=== PATIENT | female | born 1950 | race Caucasian/White ===

== ENCOUNTER → 2018-10-25 09:30 | Outpatient (CLI) | payer OTHER, SELFPAY ==
--- NOTE | 2018-10-25 09:32 | DI.MRI.S_ITS ---
PROCEDURE: MR PELIS WO/W CON INDICATIONS: growing soft tissue mass near r buttock cleft r/o sarcoma TECHNIQUE: Coronal HASTE, sagittal T2 FSE, axial T1 FSE, axial and coronal nonbreath-hold T2 FSE. Axial dynamic VIBE during administration of contrast. Post-contrast axial and coronal VIBE/2-D FLASH with fat saturation from the iliac crests to the symphysis. Optional diffusion weighted imaging and ADC may be performed. COMPARISON: Formerly [facility], MR, PELVIS W&WO CONTRAST, 04/07/2017, 10:15. Former[facility], MR, PELVIS W&WO CONTRAST, 12/15/2017, 9:24. FINDINGS: Image quality: Excellent. Bowel and peritoneum: No pathologic free pelvic fluid. Inferior colon and small bowel loops are normal in caliber. The rectal junction in the location of previous tumor was not fully imaged on the present study, however large [id number] imaging is negative for suspicious lesion in the visible bowel loops. Genitourinary system: Bladder wall is normal in thickness. Distal ureters are non distended. Uterus is surgically absent. Nodes and vessels: No pathologic pelvic or inguinal adenopathy by size criteria. Iliac vessels are normal in caliber. Soft tissues: There is a stable size, subcutaneous cystic lesion at, and just to the right of midline with mild mass effect on the gluteal fold. This structure measures approximately 7.6 x 3.5 x 6.0 cm, and demonstrates a thin imperceptible wall, and fairly homogeneous high T2 and low T1 signal. No connection to the underlying sacrum or coccyx. Postcontrast, there is no suspicious enhancing solid component. Trace wall enhancement may be present. Bones: Marrow is normal in overall signal. Degenerative disc and endplate change in the visible lower lumbar spine. IMPRESSION: Subcutaneous proteinaceous/sebaceous cyst with mass effect on the right gluteal fold, stable to mildly increased in size over multiple prior studies. It has no suspicious features. If there is further concern, this is amenable to percutaneous sampling or excision. Dictated by: Zuly Stephens M.D. on 10/25/2018 at 15:26 Approved by: Zuly Stephens M.D. on 10/25/2018 at 15:57
== END ==
PROVIDERS: Family Provider Family Medicine; PCP Family Medicine; Visit Provider Specialist
DX: L72.3 Sebaceous cyst (principal)
CPT/HCPCS: 72197; A9579

== ENCOUNTER 2019-02-17 12:16 | Day surgery (SDC) | payer OTHER, SELFPAY ==
--- NOTE | 2019-02-17 | PATH_ITS ---
[facility] Accession Number: [id number] . 01 Material submitted: . buttock - RIGHT BUTTOCK . 01 Clinical history: . CYST . 01 Diagnosis: Skin and Soft Tissue, Cyst, Right Buttock, Excision: Epidermal inclusion cyst. MRV/02/21/2019 . 01 Electronically signed: . Melvi aEst MD, Pathologist NPI- [id number] . 01 Gross description: . Received in formalin, labeled right buttock cyst, is a west-white membranous cyst (7.0 x 6.6 x 4.5 cm) with an overlying ellipse of moore-white smooth shiny unremarkable skin (9.0 x 2.5 cm). The cyst contains west-moore soft paste-like material. The lining is smooth and flat with no excrescences identified. The cyst and resection margin are inked blue. Benefits Counselor tissue submitted in cassettes A1 and A2. ([id number]) /MRV . 01 Pathologist provided ICD-10: L72.0 . 01 CPT . 860567 Performed at: [address] [facility] [address], [place], [place] [id number] MD Kenneth Bridges MD Phone: [phone]
[2019-02-17 12:44] VITALS: BP 144/95; PULSE 76; RESP 15; TEMP 36; O2SAT 96
[2019-02-17] MEDS: LACTATED RINGERS 1,000 ML 100 ML IV (12:51)
--- NOTE | 2019-02-17 13:00 | PM.PREOP ---
Pre-operative Note Interval Note History & Physical reviewed/Exam performed by Physician: Yes Changes to H&P: No H&P completed within 30 days and has changed as indicated here:: Please see office note 01/19 for H&P
[2019-02-17] MEDS: CEFAZOLIN 2 GM/100 ML FROZ.PIGGY IV (13:16)
--- NOTE | 2019-02-17 13:42 | SUR.OPER ---
Prone on padded OR bed, head in foam head support, gel chest rolls, gel pad under knees, pillow under lower legs, toes free of pressure, arms secured on padded arm boards at <90 degrees abduction. Safety belt at thigh.
[2019-02-17] MEDS: BUPIVACAINE 0.5% W/ EPI (PF) VIAL 30 ML INJ (13:57)
[2019-02-17 14:13] VITALS: BP 130/103; PULSE 90; RESP 19; TEMP 36.2; O2SAT 94
--- NOTE | 2019-02-17 14:14 | PM.OP.1 ---
Operative Date/Time/Diagnoses Date of procedure: 02/17/19 Time of procedure: 14:14 Pre-op diagnosis: Cystic mass right buttock cheek just adjacent to the cleft Post-op diagnosis: same (Probable sebaceous cyst. Lesion was 10 cm in maximum length.) Procedure & Clinicians Procedure: Excision of mass Same procedure as scheduled: Yes Indications: Patient with an enlarging cystic mass that has become uncomfortable to sit on. It measures about 10 cm in length by 5 cm and protrudes upward about 5 cm Surgeon: Berhane Iglesias Click Yes if Unassisted: Yes Anesthesia Type: General Operative Notes Findings: Large cystic mass. Excised intact. Closure Type: primary Specimen(s): other (Cystic mass) Prosthetic devices, grafts, tissues, transplants, or devices: None Estimated Blood Loss (mL): 5 Blood products transfused: none Procedure in detail: The patient was placed supine on her bed in the operating room and underwent general endotracheal anesthesia she was then placed prone on the OR table and prepped and draped in usual fashion. A because of the length of this mass I chose to make a vertical incision which included an ellipse of attenuated skin over the mass. It was then excised from the surrounding tissues using sharp dissection and cautery. The mass was removed. There was very little blood loss. Meticulous hemostasis was achieved. Deep layers were closed with 3 0 Vicryl. This subcu was closed with 3 0 Vicryl. The skin was closed with interrupted vertical mattress and simple 3 0 nylon. Dressing was applied. Patient was repositioned back on her bed in the supine position. She was extubated and taken recovery area in good condition. Plan for aftercare: Follow-up in the office
[2019-02-17 14:18] VITALS: BP 131/89; PULSE 78; RESP 14; O2SAT 93
[2019-02-17 14:23] VITALS: BP 134/25; PULSE 80; RESP 20; O2SAT 94
[2019-02-17 14:28] VITALS: BP 138/91; PULSE 70; RESP 13; O2SAT 96
[2019-02-17] MEDS: HYDROCODONE/ACET 5/325 TABLET 1 TAB PO (14:41)
[2019-02-17 14:50] VITALS: BP 133/65; PULSE 66; RESP 16; TEMP 36.8; O2SAT 97
== END 2019-02-17 15:03 ==
LOC: OR 12:17
PROVIDERS: PCP Family Medicine; Visit Provider Specialist
PROC: (CPT 21931; principal; 2019-02-17 13:15)
DX: L72.0 Epidermal cyst (principal)
CPT/HCPCS: 21931; 93005; J0690; J1100; J2405; J2704; J3010

== ENCOUNTER → 2019-08-10 09:57 | Outpatient (CLI) | payer OTHER, SELFPAY ==
--- NOTE | 2019-08-10 09:59 | DI.RAD.S_ITS ---
PROCEDURE: XR CHEST 2V INDICATIONS: R side CP, recent bronchitis, hx of CA, r/o pneumonia or CA TECHNIQUE: 2 views of the chest were acquired. COMPARISON: NM, PET NECK TO MID THIGH STD, 04/17/2017, 9:58. [facility], CR, CHEST 2 VIEW, 09/19/2009, 9:56. [facility], CR, CHEST 1 VIEW, 01/08/2012, 15:55. FINDINGS: Surgical changes and devices: Midline sternotomy wires are noted. Lungs and pleura: There is a hazy opacity projecting over the lower thoracic spine on lateral view overlying the posterior lower lobes. There is prominence of the pulmonary vasculature. No pleural effusions or pneumothorax. Mediastinum: There is a rounded opacity projecting over the inferior medial left cardiac silhouette cardiac silhouette is within normal limits for size and similar to prior comparison exams. Bones and chest wall: No suspicious bony abnormalities. IMPRESSION: 1. Focal opacity projecting over the posterior lower lobes on lateral view may represent pneumonia versus atelectasis. Consider followup chest radiograph versus CT if there is continued clinical concern. 2. Rounded opacity projecting over the medial left cardiac silhouette, which may correlate with the opacity described above or represent a small hiatal hernia. Dictated by: Kimo Edmonds M.D. on 08/10/2019 at 14:15 Approved by: Kimo Edmonds M.D. on 08/10/2019 at 14:21
[2019-08-10 10:21] LABS: Add Manual Diff / Slide Review NO; Basophils Absolute Auto 100 /uL (0-100); Basophils Percent Auto 1.7 % (0-2); Eosinophils Absolute Auto 100 /uL (0-450); Eosinophils Percent Auto 2.2 % (2-4); Hematocrit 39.7 % (36-46); Hemoglobin 13.1 g/dL (12.0-16.0); Lymphocytes Absolute Auto 500 /uL (1100-4500); Lymphocytes Percent Auto 16.5 % (25-40); Mean Corpuscular Hemoglobin 32.3 PG (26-34); Mean Corpuscular Volume 97.8 fL (80-100); Monocytes Absolute Auto 400 /uL (0-900); Monocytes Percent Auto 12.8 % (3-14); Neutrophils Absolute Auto 2100 /uL (1500-7000); Neutrophils Percent Auto 66.8 % (50-75); Platelet Count 221 X10^3/uL (150-400); Red Blood Cell Count 4.06 X10^6/uL (4.0-5.2); Red Cell Distribution Width 14.2 % (11.6-14.8); White Blood Cell Count 3.1 X10^3/uL (4.5-11.0)
[2019-08-10 10:36] LABS: Alanine Aminotransferase 32 IU/L (<35); Albumin 4.8 g/dL (3.5-5.0); Albumin Globulin Ratio 1.5 (1.0-2.8); Alkaline Phosphatase 97 U/L (38-126); Aspartate Aminotransferase 39 IU/L (14-36); BUN Creatinine Ratio 22.5 (6-22); Bilirubin Total 0.8 mg/dL (0.2-1.3); Blood Urea Nitrogen 18 mg/dL (7-17); Calcium 9.7 mg/dL (8.4-10.2); Carbon Dioxide 29 mmol/L (22-32); Chloride 103 mmol/L (98-107); Estimated Glomerular Filt Rate > 60.0 mL/min (>60); Globulin 3.1 g/dL (1.7-4.1); Glucose 109 mg/dL (80-110); HEMOLYSIS < 15 (0-50); Lipase 114 U/L (23-300); Potassium 4.3 mmol/L (3.4-5.1); Sodium 139 mmol/L (137-145); Total Protein 7.9 g/dL (6.3-8.2)
[2019-08-10 10:39] LABS: B Type Natriuretic Peptide 141 (<100)
[2019-08-10 10:47] LABS: Troponin I < 0.012 ng/mL (0.01-0.034)
== END ==
PROVIDERS: PCP Family Medicine; Visit Provider Physician Assistant
DX: R07.89 Other chest pain (principal)
CPT/HCPCS: 36415; 71046; 80053; 83690; 83880; 84484; 85025

== ENCOUNTER → 2019-09-05 10:40 | Outpatient (CLI) | payer OTHER, SELFPAY ==
[2019-09-05 11:59] LABS: BUN Creatinine Ratio 18.9 (6-22); Blood Urea Nitrogen 17 mg/dL (7-17); Calcium 9.7 mg/dL (8.4-10.2); Carbon Dioxide 30 mmol/L (22-32); Chloride 101 mmol/L (98-107); Estimated Glomerular Filt Rate > 60.0 mL/min (>60); Glucose 73 mg/dL (80-110); HEMOLYSIS < 15 (0-50); Potassium 4.8 mmol/L (3.4-5.1); Sodium 140 mmol/L (137-145)
== END ==
PROVIDERS: PCP Family Medicine; Visit Provider Specialist
DX: I10 Essential (primary) hypertension (principal)
CPT/HCPCS: 36415; 80048; 83735

== ENCOUNTER 2019-09-15 07:46 | Day surgery (SDC) | payer MEDICARE, OTHER, SELFPAY ==
--- NOTE | 2019-09-15 | PATH_ITS ---
[facility] Accession Number: [id number] . 01 Material submitted: . PART A: colon - APPENDICEAL OPENING BIOPSY PART B: colon - COLON POLYP AT 60 CM . 02 Diagnosis: A. Appendiceal Opening, Biopsy: Sessile serrated adenoma. . B. Colon, Polyp at 60 cm, Biopsy: Hyperplastic polyp in one of two fragments. One fragment of colonic mucosa with thickened muscularis mucosae, consistent with benign leiomyoma. Negative for atypia, epithelial dysplasia and malignancy. V 09/16/2019 1231 Local . 02 Electronically signed: . Kelsi Mchugh MD, Pathologist NPI- [id number] . 01 Gross description: . Part A: APPENDICEAL OPENING BIOPSY: Received in formalin are multiple fragment(s) of moore, soft tissue measuring 0.1 x 0.1 x 0.1 cm to 0.2 x 0.2 x 0.1 cm submitted entirely in 1 cassette(s) Part B: COLON POLYP AT 60 CM: Received in formalin are 2 fragment(s) of moore, soft tissue measuring 0.1 x 0.1 x 0.1 cm to 0.2 x 0.2 x 0.2 cm submitted entirely in 1 cassette(s) /[facility] [place] 09/15/2019 1928 Local . 02 Pathologist provided ICD-10: D12.1 . 02 CPT . 102450, 632490 Performed at: 01 [facility] [address] [facility], [place], [place] [id number] MD Kenneth Bridges MD Phone: [phone] Performed at: [facility] [address] [place], [place] [id number] MD Kelsi Mchugh MD Phone: [phone]
[2019-09-15 08:16] VITALS: BP 108/68; PULSE 72; RESP 15; TEMP 36.2; O2SAT 99; BMI 30.6
[2019-09-15] MEDS: SODIUM CHLORIDE 0.9% 1,000 ML 200 ML IV (08:23)
--- NOTE | 2019-09-15 08:31 | PM.HP.1 ---
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 She has done well and has had no recurrence. However she did have a colonoscopy in 2015 and had a serrated adenoma removed and is here for a screening exam due to that higher risk lesion. Patient History Medical History Anal cancer (Resolved) Heart murmur (Acute) Mass (Acute) Squamous cell carcinoma of anus (Resolved) Surgical History History of heart valve repair (Resolved ~2011) Family & Social History Social History: household members spouse Tobacco & Substance use: Smoking Status Never smoker alcohol intake current alcohol intake frequency 0-2 drinks per day Substance Use Type does not use Meds Home Medications and Allergies Home Medications Medication Instructions Recorded Confirmed Type NITROGLYCERIN (#NITROSTAT) 0.4 mg SUBLINGUAL PRN PRN #0 02/17/11 09/15/19 History metoprolol tartrate 25 mg PO BID #0 02/17/11 09/15/19 History ibuprofen [Advil] 400 mg PO PRN PRN #0 05/26/16 09/15/19 History spironolacton-hydrochlorothiaz 1 tab PO QDAY #0 07/20/17 09/15/19 History [Aldactazide] albuterol sulfate 90 mcg/actuation 2 puff INHALATION Q4-6H PRN #8 gram 06/23/19 09/15/19 Rx aerosol inhaler lisinopril 20 mg PO DAILY 09/15/19 09/15/19 History Allergies Allergy/AdvReac Type Severity Reaction Status Date / Time No Known Drug Allergies Allergy Verified 09/15/19 08:07 Review of Systems Review of Systems ROS Unobtainable: All systems reviewed & are unremarkable except as noted in HPI and below Exam Vital Signs (past 8 hours): - 09/15/19 08:16 Temperature 97.1 F L Pulse Rate 72 Respiratory Rate 15 Blood Pressure 108/68 Pulse Oximetry 99 Oxygen Delivery Method Room Air Narrative Exam Narrative: Pleasant cooperative patient no apparent distress. Lungs are clear to auscultation. No rales or rhonchi. Heart regular rate and rhythm no murmur gallop. Abdomen is soft nontender without mass. No obvious hernias. Patient is alert and oriented x3. Assessment & Plan Assessment & Plan narrative: The patient for a screening colonoscopy. I have discussed the procedure with them. Risks of bleeding, perforation which would necessitate major operation, failure to find remove all lesions, the potential tattoo were all discussed. All questions were answered. They wished to proceed.
--- NOTE | 2019-09-15 08:37 | PM.PREOP ---
Pre-operative Note Interval Note History & Physical reviewed/Exam performed by Physician: Yes Changes to H&P: No ASA Class (for procedural sedation): II
--- NOTE | 2019-09-15 08:57 | PM.OP.ENDO ---
Operative Date/Time/Diagnoses Date of procedure: 09/15/19 Time of procedure: 08:57 Pre-op diagnosis: History of squamous cell carcinoma of the anal canal. History of sessile serrated adenoma. Post-op diagnosis: same (As 2 small polyps at 60 cm. It's slight irregularity of the mucosa at the appendiceal opening. Biopsies taken. Gil colonic diverticulosis. ) Procedure & Clinicians Study performed: Colonoscopy with cold biopsy Same procedure as scheduled: Yes Indications: History of sessile serrated adenoma. Last colonoscopy 2015. Surgeon: Berhane Iglesias Procedure Notes SCOAP/Timeout: Performed Procedure in detail: The patient was placed in the left lateral decubitus position and underwent IV sedation directed by the surgeon consisting of fentanyl and Versed. Digital exam was unremarkable. It there was a slight decrease in her sphincter tone. No palpable masses. Tissues are soft. No visible external lesions.. The scope was inserted and advanced through the rectum into the sigmoid, descending, transverse, and ascending colon. Patient had gil colonic diverticulosis.. The cecum was reached identified by the ileocecal valve and the appendiceal opening. The ileocecal valve was successfully cannulated. The terminal ileum was normal in appearance. There was a slight irregularity in the mucosa at the appendiceal opening which I biopsied. This may simply be a normal variant or lymphoid tissue. There was not a distinct lesion. The scope was gradually brought out. Two tiny Polyps were found at 60 cm from the anal verge and were biopsied and completely removed.. The scope ultimately was retroflexed in the rectum. The appearance was normal. There was no evidence of any neoplastic process. There were no hemorrhoids.. The scope was removed and the patient tolerated the procedure well. Prep was excellent. Scope withdrawal time: 7 minutes Sedation minutes: 22 Findings: diverticulosis (Pancolonic), polyp (Two small polyps at 60 cm) and other findings (Slight irregularity at the appendiceal opening) Specimen(s): other (Appendiceal opening biopsies. Polyps.) Complications: none Impression: No evidence of anal cancer recurrence. Post-procedure Recommendations: Colonscopy in 5 years Follow up: as needed (Needs annual anoscopy) Disposition: PACU
[2019-09-15] MEDS: MIDAZOLAM 5 MG/5 ML VIAL IV (09:00)
[2019-09-15] MEDS: fentaNYL 250 MCG/5 ML INJ IV (09:00)
[2019-09-15 09:01] VITALS: BP 88/61; PULSE 67; RESP 17; TEMP 36.7; O2SAT 90
[2019-09-15 09:06] VITALS: BP 83/58; PULSE 64; RESP 13; O2SAT 96
[2019-09-15 09:11] VITALS: BP 95/68; PULSE 75; RESP 11; O2SAT 96
[2019-09-15 09:16] VITALS: BP 98/68; PULSE 70; RESP 11; O2SAT 96
[2019-09-15 09:25] VITALS: BP 94/66; PULSE 64; RESP 12; TEMP 36.2; O2SAT 94
== END 2019-09-15 09:39 | disposition home or self-care (01) ==
PROVIDERS: PCP Family Medicine; Visit Provider Specialist
PROC: 0DJD8ZZ Inspection of Lower Intestinal Tract, Via Natural or Artificial Opening Endoscopic (ICD-10-PCS; CPT 45378; principal; 2019-09-15 08:45)
DX: Z12.11 Encounter for screening for malignant neoplasm of colon (principal); Z86.010 Personal history of colon polyps; Z85.048 Personal history of other malignant neoplasm of rectum, rectosigmoid junction, and anus; R01.1 Cardiac murmur, unspecified; K57.30 Diverticulosis of large intestine without perforation or abscess without bleeding; D12.1 Benign neoplasm of appendix
CPT/HCPCS: 45380; 99152; J2250; J3010

== ENCOUNTER → 2019-09-27 16:09 | Outpatient (CLI) | payer MEDICARE, OTHER, SELFPAY ==
--- NOTE | 2019-09-27 16:13 | DI.MG.S_ITS ---
BILATERAL DIGITAL SCREENING MAMMOGRAM 3D/2D WITH CAD: 09/27/2019 CLINICAL: Routine screening. Comparison is made to exam dated: 12/30/2016 [facility]. There are scattered fibroglandular elements in both breasts. Current study was also evaluated with a Computer Aided Detection (CAD) system. No significant masses, calcifications, or other findings are seen in either breast. There has been no significant interval change. IMPRESSION: NEGATIVE There is no mammographic evidence of malignancy. A 1 year screening mammogram is recommended. This exam was interpreted at Station ID: [id number]. NOTE: For mammograms, a report in lay terms will be sent to the patient. Approximately 15% of breast malignancies will not be visualized mammographically. In the management of a palpable breast mass, a negative mammogram must not discourage biopsy of a clinically suspicious lesion. Electronically Signed By: Jt guzman/isa:09/27/2019 17:09:02 letter sent: Normal Exam ACR BI-RADS Category 1: Negative 3341F
== END ==
PROVIDERS: PCP Family Medicine; Visit Provider Family Medicine
DX: Z12.31 Encounter for screening mammogram for malignant neoplasm of breast (principal)
CPT/HCPCS: 77063; 77067

== ENCOUNTER → 2019-09-29 06:42 | Outpatient (CLI) | payer MEDICARE, OTHER, SELFPAY ==
--- NOTE | 2019-09-29 | DI.ECHO.S_ITS ---
[facility] +---------+ : : [address] : : : : [id number] : : : : Phone: [phone] Echocardiogram Report + + :Name: SURYA TORO Study Date: 09/29/2019 Height: 64 in : :[facility] Weight: 170 lb : : Gender: Female BSA: 1.8 m2 : :: 1950 Age: 69 yrs BP: 122/86 mmHg: :Reason For Study: Mitral Valve- Regurgitation : :Ordering Physician: John : :Stu Performed By: Pancho Jroge : :Referring: JOHN JAIN : + + Interpretation Summary The left ventricle is normal in size and wall thickness but appears slightly larger compared to the previous study. Left ventricular systolic function is low normal with the ejection fraction visually estimated to be 50-55% without focal wall motion abnormalities and appears unchanged compared to the previous study. Diastolic function could not be accurately assessed due to confounding valvular disease but the E/A ratio has increased and the E/E' is moderately higher suggestive of possible increased filling pressures. The right ventricle is normal size and systolic function is mildly reduced but is grossly unchanged compared to the previous study. The right ventricular systolic pressure is estimated to be at least 30 mmHg based on an estimated right atrial pressure of 3 mm Hg, and is likely grossly unchanged compared to the previous study. The left atrium is severely dilated and has significantly larger compared to the previous study. The posterior mitral leaflet is thickened and fixed consistent with prior mitral repair surgery. There is a jet of mitral regurgitation that is likely perivalvular external to the lateral aspect of the annular ring but appears unchanged from the previous study with probable moderate mitral regurgitation that is also likely unchanged compared to the previous study. There is mild aortic regurgitation that is unchanged compared to the previous study. There is mild to moderate tricuspid regurgitation that is less prominent compared to the previous study. The aortic root and ascending aorta are mildly enlarged but are unchanged compared to the previous study. The patient was in sinus bradycardia with heart rates between 50-65 bpm during the exam which is slightly slower compared to the previous study. Procedure: A two-dimensional transthoracic echocardiogram with color flow and Doppler was performed. The study quality was technically good. Prior echo performed on 12/28/15. The patient was in sinus bradycardia with heart rates between 50-65 bpm during the exam. This is slightly slower compared to the previous study. Left Ventricle: The left ventricle is normal in size and wall thickness. This is slightly larger compared to the previous study. Left ventricular systolic function is low normal. The ejection fraction is estimated to be 50- 55%. There are no focal wall motion abnormalities. This is unchanged compared to the previous study. Diastolic function could not be accurately assessed due to confounding valvular disease. The E/A ratio has increased and the E/E' is moderately higher suggestive of possible increased filling pressures. Right Ventricle: The right ventricle is normal size. Right ventricular systolic function is mildly reduced. This is grossly unchanged compared to the previous study. Atria: The left atrium is severely dilated. This is significantly larger compared to the previous study. Right atrial size is normal. This is unchanged compared to the previous study. The interatrial septum is intact with no evidence for an atrial septal defect. Mitral Valve: The posterior mitral leaflet is thickened and fixed consistent with prior mitral repair surgery. An annuloplasty ring is noted in the mitral position. There is a jet of mitral regurgitation that is likely perivalvular external to the lateral aspect of the annular ring but appears unchanged from the previous study. There is moderate mitral regurgitation. This is likely unchanged compared to the previous study. Aortic Valve: The aortic valve is trileaflet. The aortic valve opens well. There is mild aortic regurgitation. This is unchanged compared to the previous study. Tricuspid Valve: The tricuspid valve is normal. There is mild to moderate tricuspid regurgitation. This is less prominent compared to the previous study. The right ventricular systolic pressure is estimated to be at least 30 mmHg based on an estimated right atrial pressure of 3 mm Hg. This is unchanged compared to the previous study. Pulmonic Valve: The pulmonic valve is normal in structure and function. There is trace pulmonic regurgitation. This is unchanged compared to the previous study. Great Vessels: The aortic root is mildly dilated. The ascending aorta is mildly enlarged. This is unchanged compared to the previous study. The pulmonary artery is normal size. The IVC is of normal diameter and collapses greater than 50% with a sniff. This suggests a low right atrial pressure of 3 mm Hg. Pericardium/ Pleura There is no pericardial effusion. There is no pleural effusion. MMode/2D Measurements & Calculations LVIDd: 5.1 cm LVOT diam: 2.0 cm LVIDs: 3.8 cm Ao root diam: 3.9 cm FS: 26.0 % Aortic Jxn: 3.2 cm EPSS: 0.64 cm asc Aorta Diam: 3.4 cm IVSd: 1.0 cm LVPWd: 0.85 cm LV castaneda. diameter/BSA (cm/m^2): 2.8 LV sys. diameter/BSA (cm/m^2): 2.1 LA A2 area: 35.3 cm2 RA long axis: 5.9 cm LA A4 area: 37.5 cm2 RA area: 17.0 cm2 LA length (vol): 7.0 cm RA vol: 41.9 ml LA vol: 159.9 ml RA : 22.9 ml/m2 LA vol index: 87.6 ml/m2 TAPSE: 1.3 cm Doppler Measurements & Calculations Ao V2 max: 121.1 cm/sec LVOT Max Gay: 79.7 cm/sec Ao V2 mean: 85.7 cm/sec LV V1 max P.5 mmHg Ao max P.9 mmHg LV V1 VTI: 19.9 cm Ao mean P.3 mmHg SUNSHINE(I,D): 2.4 cm2 Ao V2 VTI: 27.6 cm SUNSHINE(V,D): 2.2 cm2 sev ratio: 0.72 SUNSHINE indexed to BSA (cm^2/m^2): 1.3 AI P1/2t: 631.4 msec AI dec slope: 211.7 cm/sec2 MV E max gay: 150.4 cm/sec TR max gay: 258.2 cm/sec MV A max gay: 93.1 cm/sec TR max P.7 mmHg MV E/A: 1.6 PA V2 max: 55.3 cm/sec Med Peak E' Gay: 6.1 cm/sec PA V2 mean: 43.5 cm/sec E/E' med: 24.7 PA mean P.82 mmHg Lat Peak E' Gay: 7.0 cm/sec PA Accel Time: 0.09 sec E/E' lat: 21.4 E/e' average: 23.0 MV dec time: 0.57 sec MVA(VTI): 1.0 cm2 MV V2 mean: 79.7 cm/sec SV(LVOT): 65.1 ml MV mean P.4 mmHg MV V2 VTI: 62.3 cm Reading Physician:ANGEL
== END ==
PROVIDERS: PCP Family Medicine; Visit Provider Specialist
DX: I08.3 Combined rheumatic disorders of mitral, aortic and tricuspid valves (principal); I77.89 Other specified disorders of arteries and arterioles
CPT/HCPCS: 93306

== ENCOUNTER → 2020-02-20 08:08 | Outpatient (CLI) | payer MEDICARE, OTHER, SELFPAY ==
[2020-02-20 09:17] LABS: Alanine Aminotransferase 26 IU/L (<35); Albumin 4.7 g/dL (3.5-5.0); Albumin Globulin Ratio 1.7 (1.0-2.8); Alkaline Phosphatase 72 U/L (38-126); Aspartate Aminotransferase 30 IU/L (14-36); BUN Creatinine Ratio 21.1 (6-22); Bilirubin Total 0.6 mg/dL (0.2-1.3); Blood Urea Nitrogen 16 mg/dL (7-17); Calcium 9.9 mg/dL (8.4-10.2); Carbon Dioxide 27 mmol/L (22-32); Chloride 103 mmol/L (98-107); Cholesterol 246 mg/dL (140-199); Estimated Glomerular Filt Rate > 60.0 mL/min (>60); Globulin 2.7 g/dL (1.7-4.1); Glucose 109 mg/dL (80-110); HEMOLYSIS < 15 (0-50); Magnesium 2.1 mg/dL (1.6-2.3); Sodium 138 mmol/L (137-145); Total Protein 7.4 g/dL (6.3-8.2); Triglycerides 109 mg/dL (35-150)
[2020-02-20 09:43] LABS: HDL Cholesterol 109 mg/dL (40-60); LDL Cholesterol Calculated 115 mg/dL (<100)
== END ==
PROVIDERS: PCP Family Medicine; Referring Provider Specialist; Visit Provider Specialist
DX: I10 Essential (primary) hypertension (principal); E78.5 Hyperlipidemia, unspecified
CPT/HCPCS: 80053; 80061; 83735

== ENCOUNTER → 2020-12-28 14:50 | Outpatient (CLI) | payer MEDICARE, OTHER, SELFPAY ==
[2020-12-28] MEDS: COVID-19 VACC #2, MRNA(MOD) 100 MCG/0.5 ML VIAL IM (14:59)
== END ==
PROVIDERS: Visit Provider Internal Medicine
DX: Z23 Encounter for immunization (principal)
CPT/HCPCS: 0012A; 91301

== ENCOUNTER → 2021-08-21 08:24 | Outpatient (CLI) | payer MEDICARE, OTHER, SELFPAY ==
--- NOTE | 2021-08-21 | DI.MG.S_ITS ---
BILATERAL DIGITAL SCREENING MAMMOGRAM 3D/2D WITH CAD: 08/21/2021 CLINICAL: Routine screening. Comparison is made to exams dated: 09/27/2019 mammogram and 12/30/2016 mammogram - [facility]. There are scattered fibroglandular elements in both breasts. Current study was also evaluated with a Computer Aided Detection (CAD) system. No significant masses, calcifications, or other findings are seen in either breast. There has been no significant interval change. IMPRESSION: NEGATIVE There is no mammographic evidence of malignancy. A 1 year screening mammogram is recommended. This exam was interpreted at Station ID: [id number]. NOTE: For mammograms, a report in lay terms will be sent to the patient. Approximately 15% of breast malignancies will not be visualized mammographically. In the management of a palpable breast mass, a negative mammogram must not discourage biopsy of a clinically suspicious lesion. Electronically Signed By: Duncan Torrez M.D., jr/isa:08/21/2021 11:31:13 letter sent: Normal Exam ACR BI-RADS Category 1: Negative 3341F
== END ==
PROVIDERS: PCP Family Medicine; Referring Provider Family Medicine; Visit Provider Family Medicine
DX: Z12.31 Encounter for screening mammogram for malignant neoplasm of breast (principal)
CPT/HCPCS: 77063; 77067

== ENCOUNTER → 2022-01-28 08:19 | Outpatient (CLI) | payer OTHER, SELFPAY ==
[2022-01-28 10:16] LABS: Alanine Aminotransferase 24 IU/L (<35); Albumin 4.7 g/dL (3.5-5.0); Albumin Globulin Ratio 1.6 (1.0-2.8); Alkaline Phosphatase 76 U/L (38-126); Aspartate Aminotransferase 30 IU/L (14-36); BUN Creatinine Ratio 17.3 (6-22); Bilirubin Total 0.5 mg/dL (0.2-1.3); Blood Urea Nitrogen 17 mg/dL (7-17); Calcium 9.4 mg/dL (8.4-10.2); Carbon Dioxide 27 mmol/L (22-32); Chloride 103 mmol/L (98-107); Estimated Glomerular Filt Rate > 60 mL/min (>60); Glucose 100 mg/dL (80-110); HEMOLYSIS < 15 (0-50); Potassium 4.4 mmol/L (3.4-5.1); Sodium 140 mmol/L (137-145); Total Protein 7.7 g/dL (6.3-8.2)
[2022-01-30 09:45] LABS: Cholesterol, Total 245 mg/dL (100-199); HDL-Cholesterol 120 mg/dL (>39); HDL-Particle (Total) 37.5 umol/L (>=30.5); LDL Particle 1007 nmol/L (<1000); LDL Size 21.4 nm (>20.5); LDL-Cholsterol 111 mg/dL (0-99); LP-IR Score 35 (<=45); Small LDL- Particle <90 nmol/L (<=527); Triglycerides 83 mg/dL (0-149)
== END ==
PROVIDERS: PCP Family Medicine; Referring Provider Specialist; Visit Provider Specialist
DX: I10 Essential (primary) hypertension (principal); I34.0 Nonrheumatic mitral (valve) insufficiency; E78.2 Mixed hyperlipidemia
CPT/HCPCS: 36415; 80053; 80061; 83704; 83735

== ENCOUNTER → 2022-02-04 08:33 | Outpatient (CLI) | payer OTHER, SELFPAY ==
[2022-02-04 10:30] LABS: Cholesterol 224 mg/dL (140-199); Triglycerides 81 mg/dL (35-150)
[2022-02-04 10:53] LABS: HDL Cholesterol 117 mg/dL (40-60); LDL Cholesterol Calculated 91 mg/dL (<100)
[2022-02-06 07:39] LABS: Cholesterol, Total 237 mg/dL (100-199); HDL-Cholesterol 108 mg/dL (>39); HDL-Particle (Total) 38.3 umol/L (>=30.5); LDL Particle 1039 nmol/L (<1000); LDL Size 21.3 nm (>20.5); LDL-Cholsterol 116 mg/dL (0-99); LP-IR Score <25 (<=45); Small LDL- Particle <90 nmol/L (<=527); Triglycerides 77 mg/dL (0-149)
== END ==
PROVIDERS: PCP Family Medicine; Referring Provider Specialist; Visit Provider Specialist
DX: E78.2 Mixed hyperlipidemia (principal); I10 Essential (primary) hypertension
CPT/HCPCS: 36415; 80061; 83704

== ENCOUNTER → 2022-03-20 10:13 | Outpatient (CLI) | payer OTHER, SELFPAY ==
--- NOTE | 2022-03-20 | DI.RAD.S_ITS ---
PROCEDURE: FL BARIUM SWALLOW INDICATIONS: Dysphagia, unspecified COMPARISON: None. FINDINGS: Function: There is normal esophageal peristalsis. No elicited gastroesophageal reflux. There impeded passage of 13 millimeter calibrated barium tablet at area of mild narrowing at the gastroesophageal junction. Morphology: Air-contrast images demonstrate normal mucosal morphology. Moderate-sized hiatal hernia noted. There is mild, circumferential narrowing of the esophagus at the GE junction immediately proximal to the hiatal hernia. Single contrast views show no extrinsic mass effects, or diverticula. Limited images of the stomach demonstrate normal appearance. IMPRESSION: 1. Moderate-sized hiatal hernia. 2. Mild narrowing at the gastroesophageal junction immediately proximal to the hiatal hernia which impedes passage of calibrated barium tablet. Recommend gastroenterology consultation for endoscopy evaluation. Dictated by: Terri Carranza MD, PhD on 03/20/2022 at 10:53 Approved by: Terri Carranza MD, PhD on 03/20/2022 at 10:57
== END ==
PROVIDERS: PCP Family Medicine; Referring Provider Family Medicine; Visit Provider Family Medicine
DX: R13.10 Dysphagia, unspecified (principal); K44.9 Diaphragmatic hernia without obstruction or gangrene; K22.2 Esophageal obstruction
CPT/HCPCS: 74220

== ENCOUNTER → 2022-03-20 10:45 | Outpatient (CLI) | payer OTHER, SELFPAY ==
[2022-03-20 11:54] LABS: COVID19 -Nasal RAPID Negative (Negative)
== END ==
PROVIDERS: PCP Family Medicine; Referring Provider Internal Medicine; Visit Provider Internal Medicine
DX: Z20.822 Contact with and (suspected) exposure to COVID-19 (principal)
CPT/HCPCS: 87635; C9803

== ENCOUNTER → 2022-03-20 10:47 | Outpatient (CLI) | payer OTHER, SELFPAY ==
--- NOTE | 2022-03-29 11:10 | PM.PFT.1 ---
Pulmonary Function Test Referral & Results Date Patient Seen: 03/20/22 Requesting provider: Donn Duffy Results: The spirometry demonstrates an FVC of 2.07 L which is 69% of predicted. The FEV1 was measured at 1.39 L which is 61% of predicted. The FEV1/FVC ratio was 67 which is 88% of predicted. Following the administration of bronchodilator there was a 27% improvement in FEV1 and a 93% improvement in FEF 25-75%. Lung volumes show an SVC of 2.54 L which is 89% of predicted. The diffusing capacity was measured at 18.60 which is 76% of predicted. No hemoglobin value was provided, so no correction for potential anemia could be made, if appropriate. The maximum voluntary ventilation was reduced Interpretation: This study demonstrates moderate obstructive lung disease based on reduction FEV1. There is evidence of significant benefit following bronchodilator administration as above There is a very minimal reduction in lung volumes suggesting the possibility of very mild restrictive lung disease There is also minimal reduction diffusing capacity suggesting element of disease at the capillary alveolar level Compared to PFTs performed in December 2012, current study shows decline in FEV1 as well as lung volumes. Diffusing capacity is essentially unchanged but spirometry has notably declined and there is no evidence of benefit following bronchodilator which was not present previously Clinical correlation suggested
== END ==
PROVIDERS: PCP Family Medicine; Referring Provider Family Medicine; Visit Provider Family Medicine
DX: R06.02 Shortness of breath (principal); R05.3 Chronic cough; J98.8 Other specified respiratory disorders; Z20.822 Contact with and (suspected) exposure to COVID-19; R13.10 Dysphagia, unspecified; K44.9 Diaphragmatic hernia without obstruction or gangrene; K22.2 Esophageal obstruction
CPT/HCPCS: 74220; 87635; 94060; 94726; 94729; C9803

== ENCOUNTER → 2022-04-03 10:16 | Outpatient (CLI) | payer OTHER, SELFPAY ==
[2022-04-03 11:55] LABS: Add Manual Diff / Slide Review NO; Basophils Absolute Auto 0 /uL (0-100); Basophils Percent Auto 1.1 % (0-2); Eosinophils Absolute Auto 100 /uL (0-450); Eosinophils Percent Auto 1.7 % (2-4); Hematocrit 28.9 % (36-46); Lymphocytes Absolute Auto 600 /uL (1100-4500); Lymphocytes Percent Auto 14.8 % (25-40); Mean Corpuscular HGB Conc 31.2 % (30-36); Mean Corpuscular Hemoglobin 23.2 PG (26-34); Mean Corpuscular Volume 74.2 fL (80-100); Monocytes Absolute Auto 500 /uL (0-900); Monocytes Percent Auto 12.8 % (3-14); Neutrophils Absolute Auto 2700 /uL (1500-7000); Neutrophils Percent Auto 69.6 % (50-75); Platelet Count 296 X10^3/uL (150-400); Red Blood Cell Count 3.89 X10^6/uL (4.0-5.2); Red Cell Distribution Width 19.1 % (11.6-14.8); White Blood Cell Count 3.9 X10^3/uL (4.5-11.0)
[2022-04-03 12:11] LABS: Alanine Aminotransferase 22 IU/L (<35); Albumin 4.6 g/dL (3.5-5.0); Albumin Globulin Ratio 1.7 (1.0-2.8); Alkaline Phosphatase 82 U/L (38-126); Aspartate Aminotransferase 27 IU/L (14-36); BUN Creatinine Ratio 19.1 (6-22); Bilirubin Total 0.3 mg/dL (0.2-1.3); Blood Urea Nitrogen 17 mg/dL (7-17); Calcium 9.1 mg/dL (8.4-10.2); Carbon Dioxide 26 mmol/L (22-32); Chloride 102 mmol/L (98-107); Estimated Glomerular Filt Rate > 60 mL/min (>60); Globulin 2.7 g/dL (1.7-4.1); Glucose 103 mg/dL (80-110); HEMOLYSIS < 15 (0-50); Magnesium 2.1 mg/dL (1.6-2.3); Potassium 4.7 mmol/L (3.4-5.1); Sodium 137 mmol/L (137-145); Total Protein 7.3 g/dL (6.3-8.2)
[2022-04-03 12:47] LABS: Thyroid Stimulating Hormone 1.86 uIU/mL (0.47-4.68)
[2022-04-06 08:45] LABS: Cholesterol, Total 252 mg/dL (100-199); HDL-Cholesterol 122 mg/dL (>39); HDL-Particle (Total) 39.1 umol/L (>=30.5); LDL Particle 952 nmol/L (<1000); LDL Size 21.3 nm (>20.5); LDL-Cholsterol 121 mg/dL (0-99); LP-IR Score <25 (<=45); Small LDL- Particle <90 nmol/L (<=527); Triglycerides 55 mg/dL (0-149)
== END ==
PROVIDERS: PCP Family Medicine; Referring Provider Specialist; Visit Provider Specialist
DX: E78.2 Mixed hyperlipidemia (principal); I10 Essential (primary) hypertension; R53.82 Chronic fatigue, unspecified
CPT/HCPCS: 36415; 80053; 80061; 83704; 83735; 84443; 85025

== ENCOUNTER → 2022-08-11 08:39 | Outpatient (CLI) | payer OTHER, SELFPAY ==
[2022-08-11 09:54] LABS: Influenza A - CEPHEID Flu A POSITIVE (NEGATIVE); Influenza B - CEPHEID Flu B NEGATIVE (NEGATIVE); Respiratory Syncytial Virus Negative (Negative)
[2022-08-11 10:03] LABS: COVID-19 CEPHEID 4-PLEX PCR Negative (Negative)
== END ==
PROVIDERS: PCP Family Medicine; Visit Provider Physician Assistant Medical
DX: R05.9 Cough, unspecified (principal); Z20.822 Contact with and (suspected) exposure to COVID-19
CPT/HCPCS: 0241U

== ENCOUNTER → 2022-08-11 09:05 | Outpatient (CLI) | payer OTHER, SELFPAY ==
--- NOTE | 2022-08-11 09:10 | DI.RAD.S_ITS ---
PROCEDURE: XR CHEST 2V INDICATIONS: abn pulm exam cough TECHNIQUE: 2 views of the chest were acquired. COMPARISON: [facility], CR, XR CHEST 2V, 08/10/2019, 10:18. FINDINGS: Surgical changes and devices: Median sternotomy changes. Lungs and pleura: Increased interstitial markings in both lungs with cephalization of pulmonary vessels. No pleural effusions or pneumothorax. Mediastinum: Mediastinal contours are normal. Heart size is mildly enlarged. Bones and chest wall: No suspicious bony abnormalities. Soft tissues appear unremarkable. IMPRESSION: Cardiomegaly with mild pulmonary vascular congestion. Findings suggest developing cardiogenic pulmonary edema. Correlate with BNP. Dictated by: Duncan Torrez M.D. on 08/11/2022 at 16:31 Approved by: Duncan Torrez M.D. on 08/11/2022 at 16:31
== END ==
PROVIDERS: PCP Family Medicine; Referring Provider Physician Assistant Medical; Visit Provider Physician Assistant Medical
DX: R09.89 Other specified symptoms and signs involving the circulatory and respiratory systems (principal); R06.2 Wheezing; R05.9 Cough, unspecified; I51.7 Cardiomegaly; Z20.822 Contact with and (suspected) exposure to COVID-19
CPT/HCPCS: 0241U; 71046

== ENCOUNTER → 2023-01-19 07:19 | Outpatient (CLI) | payer OTHER, SELFPAY ==
[2023-01-19 09:26] LABS: Alanine Aminotransferase 26 IU/L (<35); Albumin 4.5 g/dL (3.5-5.0); Albumin Globulin Ratio 1.6 (1.0-2.8); Alkaline Phosphatase 90 U/L (38-126); Aspartate Aminotransferase 31 IU/L (14-36); BUN Creatinine Ratio 16.7 (6-22); Bilirubin Total 0.9 mg/dL (0.2-1.3); Blood Urea Nitrogen 15 mg/dL (7-17); Calcium 9.5 mg/dL (8.4-10.2); Carbon Dioxide 26 mmol/L (22-32); Chloride 101 mmol/L (98-107); Estimated Glomerular Filt Rate > 60 mL/min (>60); Globulin 2.8 g/dL (1.7-4.1); Glucose 98 mg/dL (80-110); HEMOLYSIS < 15 (0-50); Magnesium 1.8 mg/dL (1.6-2.3); Potassium 4.4 mmol/L (3.4-5.1); Sodium 136 mmol/L (137-145); Total Protein 7.3 g/dL (6.3-8.2)
[2023-01-23 08:31] LABS: Cholesterol, Total 263 mg/dL (100-199); HDL-Cholesterol 126 mg/dL (>39); HDL-Particle (Total) 40.7 umol/L (>=30.5); LDL Particle 977 nmol/L (<1000); LDL Size 21.8 nm (>20.5); LDL-Cholsterol 122 mg/dL (0-99); LP-IR Score <25 (<=45); Small LDL- Particle <90 nmol/L (<=527); Triglycerides 90 mg/dL (0-149)
== END ==
PROVIDERS: PCP Family Medicine; Referring Provider Specialist; Visit Provider Specialist
DX: I10 Essential (primary) hypertension (principal); E78.00 Pure hypercholesterolemia, unspecified
CPT/HCPCS: 36415; 80053; 80061; 83704; 83735

== ENCOUNTER → 2023-02-10 14:31 | Outpatient (CLI) | payer OTHER, SELFPAY ==
[2023-02-10 15:51] LABS: Add Manual Diff / Slide Review NO; Basophils Absolute Auto 0 /uL (0-100); Basophils Percent Auto 0.7 % (0-2); Eosinophils Absolute Auto 100 /uL (0-450); Eosinophils Percent Auto 1.3 % (2-4); Hematocrit 34.1 % (36-46); Hemoglobin 11.4 g/dL (12.0-16.0); Lymphocytes Absolute Auto 700 /uL (1100-4500); Lymphocytes Percent Auto 13.1 % (25-40); Mean Corpuscular HGB Conc 33.3 % (30-36); Monocytes Absolute Auto 600 /uL (0-900); Monocytes Percent Auto 11.2 % (3-14); Neutrophils Absolute Auto 3700 /uL (1500-7000); Neutrophils Percent Auto 73.7 % (50-75); Platelet Count 257 X10^3/uL (150-400); Red Blood Cell Count 4.06 X10^6/uL (4.0-5.2); Red Cell Distribution Width 18.3 % (11.6-14.8)
[2023-02-10 16:14] LABS: Alanine Aminotransferase 31 IU/L (<35); Albumin 4.7 g/dL (3.5-5.0); Albumin Globulin Ratio 1.6 (1.0-2.8); Alkaline Phosphatase 94 U/L (38-126); Aspartate Aminotransferase 34 IU/L (14-36); Bilirubin Total 0.4 mg/dL (0.2-1.3); Blood Urea Nitrogen 15 mg/dL (7-17); Calcium 9.4 mg/dL (8.4-10.2); Carbon Dioxide 25 mmol/L (22-32); Chloride 101 mmol/L (98-107); Estimated Glomerular Filt Rate > 60 mL/min (>60); Globulin 2.9 g/dL (1.7-4.1); Glucose 139 mg/dL (80-110); HEMOLYSIS < 15 (0-50); Magnesium 1.8 mg/dL (1.6-2.3); Potassium 4.4 mmol/L (3.4-5.1); Sodium 136 mmol/L (137-145); Total Protein 7.6 g/dL (6.3-8.2)
== END ==
PROVIDERS: PCP Family Medicine; Referring Provider Specialist; Visit Provider Specialist
DX: E78.00 Pure hypercholesterolemia, unspecified (principal); I10 Essential (primary) hypertension; D64.89 Other specified anemias; R00.2 Palpitations
CPT/HCPCS: 36415; 80053; 83735; 85025

== ENCOUNTER → 2023-04-01 09:38 | Outpatient (CLI) | payer OTHER, SELFPAY | PROVIDERS: PCP Family Medicine; Visit Provider Nurse Practitioner Family | DX: R30.0 Dysuria (principal) | CPT/HCPCS: 87086 ==

== ENCOUNTER 2024-03-15 10:40 | Day surgery (SDC) | payer OTHER, SELFPAY ==
[2024-03-15] MEDS: LACTATED RINGERS 1,000 ML 42 ML IV (11:29)
[2024-03-15 11:33] VITALS: BP 137/87; PULSE 75; RESP 18; TEMP 36.1; O2SAT 97
--- NOTE | 2024-03-15 12:05 | PM.HP.1 ---
History of Present Illness History of Present Illness Date Patient Seen: 03/15/24 Time Patient Seen: 12:05 Chief complaint: Colonoscopy Narrative: 73-year-old woman here for screening colonoscopy. Personal history of colonic polyps. Last colonoscopy 2019. No abdominal concerns today. No family history of colon cancer. [facility] Medical History Heart murmur Mass Squamous cell carcinoma of anus Anal cancer Surgical History History of heart valve repair (~2011) Social History household members: spouse Smoking Status: Never smoker alcohol intake: current Meds Home Medications and Allergies Home Medications Medication Instructions Recorded Confirmed Type NITROGLYCERIN (#NITROSTAT) 0.4 mg sublingual PRN PRN Unlisted 02/17/11 03/15/24 History ##0 ibuprofen 200 mg tablet (Advil) 400 mg PO PRN PRN Pain ##0 05/26/16 03/15/24 History spironolactone 25 1 tab PO QDAY ##0 07/20/17 03/15/24 History mg-hydrochlorothiazide 25 mg tablet (Aldactazide) montelukast 10 mg tablet 10 mg PO DAILY 08/11/22 03/15/24 History omeprazole 20 mg capsule,delayed 20 mg PO DAILY 08/11/22 03/15/24 History release apixaban 5 mg tablet (Eliquis) 5 mg PO BID 03/15/24 03/15/24 History diltiazem HCl 120 mg 120 mg PO DAILY 03/15/24 03/15/24 History capsule,extended release 24 hr lisinopril 5 mg PO 1XD 03/15/24 03/15/24 History Allergies Allergy/AdvReac Type Severity Reaction Status Date / Time No Known Drug Allergies Allergy Verified 03/15/24 11:24 Exam Vital Signs (past 8 hours): - 03/15/24 11:33 Temperature 96.9 F L Pulse Rate 75 Respiratory Rate 18 Blood Pressure 137/87 Pulse Oximetry 97 Oxygen Delivery Method Room Air Oxygen Delivery Method Room Air Narrative Exam Narrative: General adult woman alert oriented no acute distress Chest nonlabored respiration Extremities warm well perfused Assessment & Plan Assessment & Plan narrative: The patient requires colorectal screening and colonoscopy is recommended. Technical details were discussed. Risks, benefits, alternatives explained. Risks including but not limited to myocardial infarction, aspiration, bleeding, pain, missed lesion, incomplete examination, need for further radiographic studies, intestinal injury, and need for major abdominal surgery were discussed. All questions were answered to their satisfaction, and they are in agreement with this plan. Time-Based Coding :: [TOTAL MINUTES] spent with patient and on the chart (including review of chart, obtaining history, exam, reviewing outside data, placing orders, documenting exam and treatment plan, and counseling patient) on [DATE].
--- NOTE | 2024-03-15 12:32 | P.OP.COLON_ITS ---
Operative Date/Time/Diagnoses Date of procedure: 03/15/24 Time of procedure: 12:32 Pre-op diagnosis: Personal history of colonic polyps Procedure & Clinicians Study performed: Screening colonoscopy Same procedure as scheduled: Yes Indications: Colorectal screening Surgeon: Reji Johnson Procedure Notes Procedure in detail: The history and physical was performed/updated and the patient is ASA class is 2. The procedure was discussed in detail with the patient. Potential risks complications including infection, bleeding, missed diagnosis, perforation, need for surgery, and were explained. Their questions were answered and informed consent was obtained. Patient was brought to the procedure room and placed standard monitoring equipment. The patient's vital signs were monitored continuously throughout the entire procedure. Prior to starting time-out was performed. The patient was placed in the left lateral recumbent position. Procedural sedation was administered by anesthesia. Examination began with a thorough inspection of the perianal area there was no evidence of fissures, fistulae, external hemorrhoids or cutaneous malignancy. The colonoscopy scope was then placed into the anal canal and was advanced to the cecum, which was identified by the ileocecal valve, the appendiceal orifice and the confluence of the taenia. The scope was then slowly withdrawn examining colon thoroughly in all directions, irrigating it of any residual stool. The scope was retroflexed within the rectum The patient tolerated the procedure well. They will be discharged once criteria are met. The prep was of good/excellent quality. The withdrawl time was 6 minutes. FINDINGS * No polyps * Diverticulosis of sigmoid colon-mild * Internal hemorrhoids Specimen(s): none sent Impression: Diverticulosis Post-procedure Recommendations: High fiber diet Plan for aftercare: No further screening colonoscopy necessary Disposition: same day surgery
[2024-03-15 12:34] VITALS: BP 104/72; PULSE 83; RESP 13; TEMP 36.7; O2SAT 94
[2024-03-15 12:38] VITALS: BP 105/70; PULSE 73; RESP 15; TEMP 36.6; O2SAT 94
[2024-03-15 12:43] VITALS: BP 106/75; PULSE 93; RESP 22; TEMP 36.6; O2SAT 94
== END 2024-03-15 12:56 | disposition home or self-care (01) ==
PROVIDERS: PCP Family Medicine; Referring Provider Surgery; Visit Provider Surgery
PROC: 0DJD8ZZ Inspection of Lower Intestinal Tract, Via Natural or Artificial Opening Endoscopic (ICD-10-PCS; CPT 45378; principal; 2024-03-15 11:45)
DX: Z12.11 Encounter for screening for malignant neoplasm of colon (principal); K57.30 Diverticulosis of large intestine without perforation or abscess without bleeding; K64.8 Other hemorrhoids
CPT/HCPCS: G0105

== ENCOUNTER → 2024-03-30 11:57 | Outpatient (CLI) | payer OTHER, SELFPAY ==
[2024-03-30 13:08] LABS: Hematocrit 40.3 % (36-46); Hemoglobin 13.4 g/dL (12.0-16.0); Mean Corpuscular HGB Conc 33.2 % (30-36); Mean Corpuscular Hemoglobin 32.7 PG (26-34); Mean Corpuscular Volume 98.6 fL (80-100); Platelet Count 249 X10^3/uL (150-400); Red Blood Cell Count 4.08 X10^6/uL (4.0-5.2); Red Cell Distribution Width 13.9 % (11.6-14.8); White Blood Cell Count 4.2 X10^3/uL (4.5-11.0)
[2024-03-30 13:39] LABS: Alanine Aminotransferase 28 IU/L (<35); Albumin 4.7 g/dL (3.5-5.0); Alkaline Phosphatase 91 U/L (38-126); Aspartate Aminotransferase 34 IU/L (14-36); BUN Creatinine Ratio 17.3 (6-22); Bilirubin Total 0.8 mg/dL (0.2-1.3); Blood Urea Nitrogen 14 mg/dL (7-17); Calcium 9.4 mg/dL (8.4-10.2); Carbon Dioxide 25 mmol/L (22-32); Chloride 101 mmol/L (98-107); Estimated Glomerular Filt Rate > 60 mL/min (>60); Globulin 2.4 g/dL (1.7-4.1); Glucose 99 mg/dL (80-110); HEMOLYSIS < 15 (0-50); Potassium 4.8 mmol/L (3.4-5.1); Sodium 135 mmol/L (137-145); Total Protein 7.1 g/dL (6.3-8.2)
== END ==
PROVIDERS: PCP Family Medicine; Referring Provider Specialist; Visit Provider Specialist
DX: E78.00 Pure hypercholesterolemia, unspecified (principal); Z79.01 Long term (current) use of anticoagulants
CPT/HCPCS: 36415; 80053; 80061; 83704; 83735; 85027

== ENCOUNTER → 2024-05-26 07:49 | Outpatient (CLI) | payer OTHER, SELFPAY ==
--- NOTE | 2024-05-26 07:50 | DI.MG.S_ITS ---
BILATERAL DIGITAL SCREENING MAMMOGRAM 3D/2D WITH CAD: 05/26/2024 CLINICAL: Routine screening. Comparison is made to exams dated: 08/21/2021 mammogram, 09/27/2019 mammogram, and 12/30/2016 mammogram - [facility]. There are scattered areas of fibroglandular density (category b / 25%-50% glandular tissue). Current study was also evaluated with a Computer Aided Detection (CAD) system. No significant masses, calcifications, or other findings are seen in either breast. There has been no significant interval change. IMPRESSION: NEGATIVE There is no mammographic evidence of malignancy. A 1 year screening mammogram is recommended. Based on the Tyrer Cuzick model (a risk assessment model) the patient's lifetime risk is 3.8% and her 10 year risk is 2.9%. According to the ACR, ACS, and NCCN guidelines, an annual breast MRI exam along with mammogram is recommended if the patient's lifetime risk is 20% or greater. This exam was interpreted at Station ID: [id number]. NOTE: For mammograms, a report in lay terms will be sent to the patient. Approximately 15% of breast malignancies will not be visualized mammographically. In the management of a palpable breast mass, a negative mammogram must not discourage biopsy of a clinically suspicious lesion. Electronically Signed By: Zuly hobbs/isa:05/26/2024 14:11:17 letter sent: Normal Exam ACR BI-RADS Category 1: Negative
== END ==
LOC: MAMMO 07:50
PROVIDERS: PCP Family Medicine; Referring Provider Family Medicine; Visit Provider Family Medicine
DX: Z12.31 Encounter for screening mammogram for malignant neoplasm of breast (principal)
CPT/HCPCS: 77063; 77067

== ENCOUNTER → 2025-01-23 09:20 | Outpatient (CLI) | payer OTHER, SELFPAY ==
[2025-01-23 10:01] LABS: Hematocrit 25.2 % (36-46); Mean Corpuscular HGB Conc 31.7 % (30-36); Mean Corpuscular Hemoglobin 29.4 PG (26-34); Mean Corpuscular Volume 92.7 fL (80-100); Platelet Count 322 X10^3/uL (150-400); Red Blood Cell Count 2.72 X10^6/uL (4.0-5.2); Red Cell Distribution Width 14.9 % (11.6-14.8); White Blood Cell Count 3.6 X10^3/uL (4.5-11.0)
[2025-01-23 10:25] LABS: Alanine Aminotransferase 35 IU/L (<35); Albumin 4.6 g/dL (3.5-5.0); Albumin Globulin Ratio 2.1 (1.0-2.8); Alkaline Phosphatase 82 U/L (38-126); Aspartate Aminotransferase 35 IU/L (14-36); BUN Creatinine Ratio 14.1 (6-22); Bilirubin Total 0.8 mg/dL (0.2-1.3); Blood Urea Nitrogen 12 mg/dL (7-17); Calcium 9.5 mg/dL (8.4-10.2); Carbon Dioxide 26 mmol/L (22-32); Chloride 104 mmol/L (98-107); Estimated Glomerular Filt Rate > 60 mL/min (>60); Globulin 2.2 g/dL (1.7-4.1); Glucose 105 mg/dL (70-99); HEMOLYSIS < 15 (0-50); Magnesium 1.9 mg/dL (1.6-2.3); Potassium 4.2 mmol/L (3.4-5.1); Sodium 137 mmol/L (137-145); Total Protein 6.8 g/dL (6.3-8.2)
[2025-01-25 16:11] LABS: Cholesterol, Total 255 mg/dL (100-199); HDL-Cholesterol 123 mg/dL (>39); Historical Reading Comment: (.); LDL Particle 753 nmol/L (<1000); LDL Size 21.4 nm (>20.5); LDL-Cholsterol 122 mg/dL (0-99); LP-IR Score <25 (<=45); Small LDL- Particle <90 nmol/L (<=527); Triglycerides 65 mg/dL (0-149)
== END ==
PROVIDERS: PCP Family Medicine; Referring Provider Specialist; Visit Provider Specialist
DX: E78.00 Pure hypercholesterolemia, unspecified (principal); I48.91 Unspecified atrial fibrillation; Z79.01 Long term (current) use of anticoagulants
CPT/HCPCS: 36415; 80053; 80061; 83704; 83735; 85027